=== PATIENT | male | born 1990 | race Caucasian/White ===

== ENCOUNTER 2017-10-29 07:48 | Emergency (ER) | payer SELFPAY ==
[2017-10-29 07:49] VITALS: BP 126/68; PULSE 128; RESP 16; TEMP 38; O2SAT 96; BMI 28.4
--- NOTE | 2017-10-29 08:07 | RAD_ITS ---
STUDY: X-RAY CHEST REASON FOR EXAM: Male, 27 years old. Cough. Flulike symptoms. TECHNIQUE: PA and lateral views of the chest. COMPARISON: Comparison is made with prior study dated August 21, 2017. FINDINGS: Hyperinflation. The lungs are clear. There is no demonstrated pleural abnormality. Normal size heart. Normal mediastinum and coni. Normal visualized pulmonary arteries. Normal visualized aortic arch and descending thoracic aorta. Normal visualized thoracic spine. Normal visualized ribs, clavicles, and shoulders. There is no demonstrated abnormality of the visualized soft tissue structures of the upper abdomen. RAD/Chest PA and Lateral IMPRESSION: Hyperinflation. Electronically Signed: Juan Coleman MD at 8:49 EST Tel [phone], Service support ,
--- NOTE | 2017-10-29 08:20 | ED.DCSUM_ITS ---
- ER Visit Summary Date of Service: 10/29/17 Chief Complaint: Fever, chills, cough History of Present Illness: The patient is a 27 M fever, chills, body aches, and cough for the past 24-36 hours. Patient states he is bringing up white yellow sputum. He is wheezing. He has been taking Tylenol and DayQuil. Patient did have exposure to someone with influenza. Physical Examination: Blood pressure is 126/68, temperature 100.4, heart rate 128, respiratory rate 16, pulse ox 96% on room air. Head neck examination was TMs to be clear bilaterally. He normal posterior pharyngeal exam. Heart slightly tachycardic and regular. Lung sounds are clear with good air movement. Abdomen is soft nontender. Test Results: Two-view chest x-ray is obtained. Hyperinflation is noted without focal infiltrate. Emergency Department Course and Treatment: Patient is given Tylenol. Test results were discussed with him. He is interested in Tamiflu but is concerned about the co-pay. We will write him a prescription and he will check with the pharmacy before filling the prescription. Treatment Plan: [] Disposition: Discharge Impression: Influenza This note was generated with [employer] unlimited dictation software. It may contain incorrect words, spelling, and punctuation that were not noted in review of the chart prior to signing ED Disposition - Plan for ED Patient: Chief Complaint: Cold Sx Referrals: Care Physician,No Primary [Primary Care Provider] -
[2017-10-29] MEDS: Acetaminophen 500 MG Tablet 1000 MG PO (08:49)
--- NOTE | 2017-10-29 09:02 | ED.DEP ---
ED Disposition - Plan for ED Patient: Disposition: Home or Assisted Living Chief Complaint: Cold Sx Instructions: ED Flu Prescriptions: Oseltamivir Phosphate [Tamiflu] 75 mg PO BID #10 capsule Referrals: Richard Dueñas III, MD [STAFF PHYSICIAN] - As Needed
[2017-10-29 09:19] VITALS: BP 138/77; PULSE 62; RESP 15; O2SAT 98
== END 2017-10-29 09:20 | disposition home or self-care (01) ==
PROVIDERS: Emergency Provider Emergency Medicine
DX: J11.1 Influenza due to unidentified influenza virus with other respiratory manifestations (principal); J45.909 Unspecified asthma, uncomplicated; Z86.59 Personal history of other mental and behavioral disorders; Z72.0 Tobacco use
CPT/HCPCS: 71046; 99283

== ENCOUNTER 2018-01-29 08:28 | Emergency (ER) | payer SELFPAY ==
--- NOTE | 2018-01-29 09:01 | DT_ITS ---
This patient was seen during an EMR downtime January 26, 2018 - February 02, 2018. This patient may have a combination of paper and electronic documentation or all paper documentation. All documentation is viewable within the e-chart portion of [facility] for each patient visit.
--- NOTE | 2018-01-29 12:00 | EKG12_ITS ---
Test Reason : CP Blood Pressure : / mmHG Vent. Rate : 097 BPM Atrial Rate : 097 BPM P-R Int : 128 ms QRS Dur : 096 ms QT Int : 350 ms P-R-T Axes : 076 069 029 degrees QTc Int : 444 ms Normal sinus rhythm with sinus arrhythmia Nonspecific T wave abnormality Abnormal ECG Confirmed by CARLOS AMIN, DEANDRE ([id number]), loan expeditor WILLIS SCOTT ([id number]) on 02/04/2018 5:23:26 PM Referred By: [email or web address] Confirmed By:DEANDRE GONZALEZ MD
--- NOTE | 2018-01-29 20:20 | RAD_ITS ---
STUDY: X-RAY CHEST REASON FOR EXAM: Male, 27 years old. Chest pain, vomiting. TECHNIQUE: Single AP portable upright view of the chest. COMPARISON: PA and lateral chest x-ray October 29, 2017. FINDINGS: The lungs are clear and expanded. There is no demonstrated pleural abnormality. Normal size heart. Normal mediastinum and coni. Normal visualized pulmonary arteries. Normal visualized aortic arch and descending thoracic aorta. Normal visualized thoracic spine. Normal visualized ribs, clavicles, and shoulders. There is no demonstrated abnormality of the visualized soft tissue structures of the upper abdomen. RAD/Chest 1 View (Portable) IMPRESSION: No acute cardiopulmonary disease. Electronically Signed: Kristopher Miller MD at 12:55 EDT , Service support ,
[2018-01-31 14:12] LABS: ALB/GLOB Ratio 1.2 RATIO (0.9-2.4); AST(SGOT) 13 U/L (15-37); Alanine Aminotransfer ALT/SGPT 22 U/L (16-61); Albumin, Serum 4.3 g/dL (3.2-5.0); Alkaline Phosphatase 75 U/L (45-117); Anion Gap 8 (5-15); BUN 10 mg/dL (7-18); BUN/Creat Ratio 8.7 RATIO (10-20); Chloride 106 mmol/L (98-107); Creatinine, Serum 1.15 mg/dL (0.70-1.30); EST Glomerular Filtration Rate 81 mL/min (>60); Est Glom Filt Rate - Afr Amer 98 mL/min (>60); Globulin 3.6 g/dL (2.2-4.2); Glucose 110 mg/dL (74-106); Lipase 59 U/L (73-393); Potassium 3.7 mmol/L (3.5-5.1); Protein, Total 7.9 g/dL (6.4-8.2); Sodium Level 141 mmol/L (136-145)
[2018-02-01 12:03] LABS: Basophil% 0.1 % (0-1); Eosinophils% 0.6 % (0-5); Hematocrit 46.4 % (40-54); Hemoglobin 16.2 g/dl (13.0-16.5); Lymphocyte % 12.5 % (19-41); Mean Corp Hgb Conc 34.9 g/gl (32-36); Mean Corpuscular Hgb 30.6 pg (27.0-32.0); Mean Corpuscular Volume 87.5 fL (80-94); Mean Platelet Vol. 10.4 fl (6.2-12.0); Monocyte% 4.6 % (0-10); Neutrophil % 82.1 % (47-70); POSITIVE COUNT NO; POSITIVE DIFFERENTIAL NO; POSITIVE MORPHOLOGY NO; Platelet Count 243 K/mm3 (150-450); RBC Distribution Width CV 12.7 % (11.6-14.6); RBC Distribution Width SD 40.6 fl (35.1-43.9); White Blood Count 10.9 K/mm3 (4.4-11.0)
[2018-02-01 12:04] LABS: Absolute Lymphocyte Count 1.36 X10^3/ul (0.83-4.51); Absolute Neutrophil Count 8.9 X10^3/uL (2.0-7.7); Basophil# 0.01 X10^3/uL; Eosinophil# 0.07 X10^3/uL; Lymphocyte # 1.36 X10^3/ul (4.0)
[2018-02-01 14:00] LABS: D-Dimer Quantitative (DVT/PE) 0.29 FEU/ug/m (0.27-0.49)
== END 2018-01-29 12:34 | disposition home or self-care (01) ==
PROVIDERS: Emergency Provider Emergency Medicine
DX: R07.9 Chest pain, unspecified (principal); R11.10 Vomiting, unspecified; F17.210 Nicotine dependence, cigarettes, uncomplicated; Z82.49 Family history of ischemic heart disease and other diseases of the circulatory system
CPT/HCPCS: 36415; 71045; 80053; 83690; 84484; 85025; 85379; 93005; 96374; 96375; 99283; A4216; J2405